=== PATIENT | male | born 1965 | race Caucasian/White ===

== ENCOUNTER 2022-08-28 14:26 | Outpatient (CLI) | payer OTHER ==
--- NOTE | 2022-08-28 16:20 | XRAY Report ---
PROCEDURE: Ankle 3 View RT INDICATIONS: RIGHT ANKLE PAIN TECHNIQUE: 3 views of the ankle were acquired. COMPARISON: None. FINDINGS: Bones: No fractures or dislocations. Ankle mortise is normally aligned. No suspicious bony lesions . Mild degenerative joint disease at the tibiotalar joint and talonavicular joint. Posterior and jose ramon ntar calcaneal spurring. There is erosion in the plantar aspect of the calcaneus. Soft tissues: No tibiotalar joint effusion. Achilles tendon appears thickened at the calcaneal inse rtion, suggesting Achilles tendinitis. IMPRESSION: 1. Mild degenerative joint disease. 2. There is bony erosion in the plantar aspect of the calcaneus. If there is clinical suspicion for i nfection, MRI with and without contrast is suggested. 3. Posterior and plantar calcaneal spurring. 4. Suspect Achilles tendinitis. Reviewed by: Maureen Red MD on 08/28/2022 4:19 PM PDT Approved by: Maureen Red MD on 08/28/2022 4:19 PM PDT Station ID: [id number]
== END 2022-08-28 14:27 | disposition home or self-care (01) ==
LOC: DI 14:26
PROVIDERS: ATTEND Student in an Organized Health Care Education/Training Program
DX: M19.071 Primary osteoarthritis, right ankle and foot (principal); M85.871 Other specified disorders of bone density and structure, right ankle and foot; M77.31 Calcaneal spur, right foot